=== PATIENT | female | born 1990 ===

== ENCOUNTER → 2017-12-24 | Outpatient (CLI) | payer BC | END | disposition home or self-care (01) | LOC: US 07:36 | DX: N93.9 Abnormal uterine and vaginal bleeding, unspecified (principal); N39.0 Urinary tract infection, site not specified; N88.8 Other specified noninflammatory disorders of cervix uteri | CPT/HCPCS: 76830; 76856 ==

== ENCOUNTER 2017-12-29 15:33 | Emergency (ER) | payer BC | END 2017-12-29 16:15 | disposition home or self-care (01) | LOC: ER 15:33 | DX: H00.011 Hordeolum externum right upper eyelid (principal) | CPT/HCPCS: 99283 ==